=== PATIENT | female | born 1940 | race Caucasian/White ===

== ENCOUNTER 2018-03-12 07:57 | Day surgery (SDC) | payer MEDICARE ==
[~2018-03-12 07:57] MED LIST: CO Q-10100 MG PO; CURAMED PO; ENALAPRIL10 MG PO; FISH OIL1000 M2 PO; HYDROXYCHLOR200 M1 PO; LUTEIN PO; METOPROLOL SUC100 MG PO; NORVASC5 M1 PO; SG ASA LOW81 M1 PO; [UNRECOGNIZED DRUG - OTHER] PO
[2018-03-12 10:23] VITALS: BP 121/68
== END 2018-03-12 10:48 | disposition home or self-care (01) ==
LOC: ENDO 07:57
PROVIDERS: ATTEND Surgery
PROC: 0DJD8ZZ Inspection of Lower Intestinal Tract, Via Natural or Artificial Opening Endoscopic (ICD-10-PCS; principal; 2018-03-12)
DX: Z12.11 Encounter for screening for malignant neoplasm of colon (principal); I48.91 Unspecified atrial fibrillation; I10 Essential (primary) hypertension; M19.90 Unspecified osteoarthritis, unspecified site; Z85.820 Personal history of malignant melanoma of skin

== ENCOUNTER 2018-08-22 02:26 | Emergency (ER) | payer MEDICARE ==
[~2018-08-22] VITALS: Ht 157.5 cm; Wt 100.0 kg
[2018-08-22] MEDS ORDERED: ACYCLOVIR400 MG PO (02:45)
[2018-08-22] MEDS ORDERED: ENALAPRIL10 MG PO (02:45)
[2018-08-22] MEDS ORDERED: HYDROXYCHLOR200 M1 PO (02:45)
[2018-08-22 03:34] VITALS: BP 157/56
== END 2018-08-22 03:34 | disposition home or self-care (01) ==
LOC: ED 02:26
DX: I10 Essential (primary) hypertension (principal); H81.10 Benign paroxysmal vertigo, unspecified ear

== ENCOUNTER 2019-04-02 18:05 | Emergency (ER) | payer MEDICARE ==
[~2019-04-02] VITALS: Ht 157.5 cm; Wt 80.0 kg
[~2019-04-02 18:05] MED LIST changes: +ACYCLOVIR400 MG PO
[2019-04-02 19:02] LABS: HEMATOCRIT 41.2 % (37.0-47.0); HEMOGLOBIN 13.3 g/dl (12.0-16.0); IMMATURE GRANULOCYTES 0.3 % (0.0-5.0); MEAN CELL VOLUME 88.8 fL CALC (80.0-100.0); MEAN CORPUSCULAR HGB 28.7 pG CALC (26.0-32.0); MEAN CORPUSCULAR HGB CONC 32.3 g/L CALC (32.0-36.0); NEUT# 3.13 thou/uL (2.00-7.15); RED BLOOD COUNT 4.64 mill/uL (4.20-5.60); RED CELL DISTRI WIDTH 13.6 % (11.5-15.5)
[2019-04-02 19:21] LABS: ALBUMIN 3.6 g/dL (3.2-5.0); ALKALINE PHOSPHATASE 71 u/l (38-126); ANION GAP 11 (6-22 (CALC)); BILIRUBIN, TOTAL 0.2 mg/dL (0.0-1.4); BUN 16 mg/dL (8-23); BUN/CREATININE RATIO 20 (12-20 (CALC)); CARBON DIOXIDE 29 mmol/l (22-30); CHLORIDE 105 mmol/l (95-108); CREATININE 0.8 mg/dL (0.5-1.0); GFR > 60 ML/MIN (>=60 (CALC)); GFR FOR AFR.AMER. > 60 ML/MIN (>=60 (CALC)); POTASSIUM 4.9 mmol/l (3.5-5.1); SGOT/AST 23 u/l (9-36); SODIUM 139 mmol/l (137-146); TOTAL PROTEIN 6.7 g/dL (6.3-8.2)
[2019-04-02 21:31] VITALS: BP 130/60
== END 2019-04-02 21:30 | disposition home or self-care (01) ==
LOC: ED 18:05
PROVIDERS: Family Medicine
DX: R04.2 Hemoptysis (principal); R91.8 Other nonspecific abnormal finding of lung field; I10 Essential (primary) hypertension
CPT/HCPCS: Q9967

== ENCOUNTER 2019-10-02 | Emergency (ER) | payer MEDICARE, MEDICAID ==
[2019-10-02] MEDS ORDERED: LOSARTAN POTASS50 MG PO (05:22)
[2019-10-02] MEDS ORDERED: CLONIDINE0.1 MG PO (05:22)
[2019-10-02 05:45] LABS: URINE BILIRUBIN - DIPSTICK NEGATIVE (NEGATIVE); URINE BLOOD DIPSTICK NEGATIVE (NEGATIVE); URINE COLOR YELLOW; URINE GLUCOSE - DIPSTICK NEGATIVE (NEGATIVE); URINE KETONE NEGATIVE (NEGATIVE); URINE LEUK ESTERASE NEGATIVE (NEGATIVE); URINE NITRITE - DIPSTICK NEGATIVE (Negative); URINE PROTEIN - DIPSTICK NEGATIVE (NEG-TRACE); URINE UROBILINOGEN - DIPSTICK 0.2 E.U./dL (0.2)
[2019-10-02 05:46] LABS: HEMATOCRIT 42.3 % (37.0-47.0); HEMOGLOBIN 13.8 g/dl (12.0-16.0); IMMATURE GRANULOCYTES 0.2 % (0.0-5.0); MEAN CELL VOLUME 86.7 fL CALC (80.0-100.0); MEAN CORPUSCULAR HGB 28.3 pG CALC (26.0-32.0); MEAN CORPUSCULAR HGB CONC 32.6 g/L CALC (32.0-36.0); NEUT# 3.24 thou/uL (2.00-7.15); RED BLOOD COUNT 4.88 mill/uL (4.20-5.60)
[2019-10-02 06:06] LABS: ALBUMIN 3.5 g/dL (3.2-5.0); ALKALINE PHOSPHATASE 66 u/l (38-126); ANION GAP 10 (6-22 (CALC)); BUN 21 mg/dL (8-23); BUN/CREATININE RATIO 25 (12-20 (CALC)); CARBON DIOXIDE 26 mmol/l (22-30); CHLORIDE 105 mmol/l (95-108); CREATININE 0.8 mg/dL (0.5-1.0); GFR > 60 ML/MIN (>=60 (CALC)); GFR FOR AFR.AMER. > 60 ML/MIN (>=60 (CALC)); POTASSIUM 4.3 mmol/l (3.5-5.1); SGOT/AST 23 u/l (9-36); SODIUM 138 mmol/l (137-146); TOTAL PROTEIN 6.4 g/dL (6.3-8.2)
[2019-10-02 06:08] LABS: BILIRUBIN, TOTAL 0.5 mg/dL (0.0-1.4)
[2019-10-02] MEDS ORDERED: TOPROL XL50 MG PO (06:50)
[2019-10-02] MEDS ORDERED: HYDROXYZINE HYD25 MG PO (06:50)
== END 2019-10-02 07:53 | disposition home or self-care (01) ==
PROVIDERS: Family Medicine
DX: I10 Essential (primary) hypertension (principal); F41.9 Anxiety disorder, unspecified
CPT/HCPCS: J2060

== ENCOUNTER 2021-10-09 13:43 | Emergency (ER) | payer MEDICARE, MEDICAID ==
[~2021-10-09] VITALS: Ht 157.5 cm; Wt 100.0 kg
[~2021-10-09 13:43] MED LIST changes: +CLONIDINE0.1 MG PO; +HYDROXYZINE HYD25 MG PO; +LOSARTAN POTASS50 MG PO; +TOPROL XL50 MG PO
[2021-10-09 15:09] VITALS: BP 134/82
[2021-10-09] MEDS ORDERED: LASIX 20 MG TAB20 MG PO (23:38)
[2021-10-09] MEDS ORDERED: LOSARTAN POTASS50 MG PO (23:39)
[2021-10-10] MEDS ORDERED: METOPROLOL SUCC50 MG PO (09:55)
[2021-10-10] MEDS ORDERED: CRESTOR10 MG PO (09:56)
[2021-10-10] MEDS ORDERED: XARELTO20 MG PO (13:17)
[2021-10-10] MEDS ORDERED: FLECAINIDE50 MG PO (13:18)
== END 2021-10-09 14:35 | disposition left against medical advice (07) ==
LOC: ED 13:43
DX: I48.91 Unspecified atrial fibrillation (principal); I10 Essential (primary) hypertension; Z85.118 Personal history of other malignant neoplasm of bronchus and lung; Z91.19 Patient's noncompliance with other medical treatment and regimen

== ENCOUNTER 2021-10-09 18:14 | Observation (INO) | payer MEDICARE, MEDICAID ==
[~2021-10-09] VITALS: Ht 157.5 cm; Wt 100.0 kg
[2021-10-09] VITALS (10 sets, daily range): BP systolic 134–198; BP diastolic 74–168
[2021-10-09 19:13] LABS: IMMATURE GRANULOCYTES 0.1 % (0.0-5.0); MEAN CELL VOLUME 91.7 fL CALC (80.0-100.0); MEAN CORPUSCULAR HGB 29.9 pG CALC (26.0-32.0); MEAN CORPUSCULAR HGB CONC 32.6 g/dL CAL (32.0-36.0); NEUT# 4.64 thou/uL (2.00-7.15); RED BLOOD COUNT 4.69 mill/uL (4.20-5.60); RED CELL DISTRI WIDTH 13.3 % (11.5-15.5)
[2021-10-09 19:30] LABS: ALBUMIN 3.8 g/dL (3.2-5.0); ALKALINE PHOSPHATASE 74 u/l (38-126); ANION GAP 13 (6-22 (CALC)); BILIRUBIN, TOTAL 0.5 mg/dL (0.0-1.4); BUN 17 mg/dL (8-23); BUN/CREATININE RATIO 22 (12-20 (CALC)); CARBON DIOXIDE 26 mmol/l (22-30); CHLORIDE 106 mmol/l (95-108); CREATININE 0.8 mg/dL (0.5-1.0); GFR > 60 ML/MIN (>=60 (CALC)); GFR FOR AFR.AMER. > 60 ML/MIN (>=60 (CALC)); LIPASE 92 u/l (23-300); POTASSIUM 4.2 mmol/l (3.5-5.1); SGOT/AST 28 u/l (9-36); SODIUM 140 mmol/l (137-146); TOTAL PROTEIN 6.7 g/dL (6.3-8.2)
[2021-10-09 19:35] LABS: ACT PARTIAL THROMBO TIME 27.3 SECONDS (20.0-32.5); INTERNATIONAL NORMALIZED RATIO 1.1 RATIO (0.7-1.3); PROTHROMBIN TIME 11.2 SECONDS (9.0-12.5)
[2021-10-09] MEDS ORDERED: LASIX 20 MG TAB20 MG PO (23:38)
[2021-10-09] MEDS ORDERED: LOSARTAN POTASS50 MG PO (23:39)
[2021-10-10 00:09] VITALS: BP 144/82
[2021-10-10 04:35] VITALS: BP 137/58
[2021-10-10 06:53] LABS: HEMATOCRIT 40.1 % (37.0-47.0); HEMOGLOBIN 12.7 g/dl (12.0-16.0); MEAN CELL VOLUME 92.8 fL CALC (80.0-100.0); MEAN CORPUSCULAR HGB 29.4 pG CALC (26.0-32.0); MEAN CORPUSCULAR HGB CONC 31.7 g/dL CAL (32.0-36.0); RED BLOOD COUNT 4.32 mill/uL (4.20-5.60); RED CELL DISTRI WIDTH 13.4 % (11.5-15.5)
[2021-10-10 07:05] LABS: ANION GAP 9 (6-22 (CALC)); BUN 15 mg/dL (8-23); BUN/CREATININE RATIO 23 (12-20 (CALC)); CALCULATED LDLCHOLESTEROL 37 mg/dL (62-129 (CALC)); CARBON DIOXIDE 23 mmol/l (22-30); CHLORIDE 111 mmol/l (95-108); CHOLESTEROL HDL RATIO 2.7 (<4.4 (CALC)); CREATININE 0.7 mg/dL (0.5-1.0); GFR > 60 ML/MIN (>=60 (CALC)); GFR FOR AFR.AMER. > 60 ML/MIN (>=60 (CALC)); HDL CHOLESTEROL 34 mg/dL (>=40); POTASSIUM 3.7 mmol/l (3.5-5.1); SODIUM 140 mmol/l (137-146); TOTAL CHOLESTEROL 92 mg/dl (0-199); TOTAL TRIGLYCERIDES 101 mg/dl (30-149); VLDL CHOLESTROL 20 mg/dl (0-48 (CALC))
[2021-10-10 07:20] VITALS: BP 152/96
[2021-10-10] MEDS ORDERED: METOPROLOL SUCC50 MG PO (09:55)
[2021-10-10] MEDS ORDERED: CRESTOR10 MG PO (09:56)
[2021-10-10 10:26] VITALS: BP 156/66
[2021-10-10] MEDS ORDERED: XARELTO20 MG PO (13:17)
[2021-10-10] MEDS ORDERED: FLECAINIDE50 MG PO (13:18)
== END 2021-10-10 14:25 | disposition home or self-care (01) ==
LOC: ED 18:14 → ED-I 19:40 → ED 20:08 → MS2 20:09
PROVIDERS: Nurse Practitioner; ADMIT Internal Medicine; ATTEND Internal Medicine
DX: I48.91 Unspecified atrial fibrillation (principal); R07.9 Chest pain, unspecified; I10 Essential (primary) hypertension; M35.00 Sjogren syndrome, unspecified; Z85.118 Personal history of other malignant neoplasm of bronchus and lung; Z90.2 Acquired absence of lung [part of]; Z20.822 Contact with and (suspected) exposure to COVID-19; R00.0 Tachycardia, unspecified; R53.83 Other fatigue; Z91.19 Patient's noncompliance with other medical treatment and regimen
CPT/HCPCS: G0378; J1650

== ENCOUNTER 2023-04-20 10:51 | Emergency (ER) | payer MEDICARE, MEDICAID ==
[~2023-04-20] VITALS: Ht 157.5 cm; Wt 92.9 kg
[~2023-04-20 10:51] MED LIST changes: +CRESTOR10 MG PO; +FLECAINIDE50 MG PO; +LASIX 20 MG TAB20 MG PO; +METOPROLOL SUCC50 MG PO; +XARELTO20 MG PO
[2023-04-20 11:07] VITALS: BP 173/82
[2023-04-20 11:31] VITALS: BP 197/76
[2023-04-20 11:33] VITALS: BP 184/78
[2023-04-20 11:50] LABS: BASO% 0.3 % (0-3); EOS% 3.4 % (0-8); HEMATOCRIT 42.8 % (37.0-47.0); HEMOGLOBIN 13.7 g/dl (12.0-16.0); IMMATURE GRANULOCYTES 0.1 % (0.0-5.0); LYMPH% 16.6 % (15-41); MEAN CELL VOLUME 91.5 fL CALC (80.0-100.0); MEAN CORPUSCULAR HGB 29.3 pG CALC (26.0-32.0); MONO% 11.7 % (2-13); NEUT# 6.23 thou/uL (2.00-7.15); NEUT% 67.9 % (42-76); RED BLOOD COUNT 4.68 mill/uL (4.20-5.60)
[2023-04-20 11:56] LABS: ALBUMIN 3.9 g/dL (3.2-5.0); ALKALINE PHOSPHATASE 75 u/l (38-126); ANION GAP 11 (6-22 (CALC)); BUN 18 mg/dL (8-23); BUN/CREATININE RATIO 24 (12-20 (CALC)); CARBON DIOXIDE 26 mmol/l (22-30); CHLORIDE 105 mmol/l (95-108); CREATININE 0.8 mg/dL (0.5-1.0); GFR FOR AFR.AMER. > 60 ML/MIN (>=60 (CALC)); GFR OTHER RACES > 60 ML/MIN (>=60 (CALC)); POTASSIUM 4.1 mmol/l (3.5-5.1); SGOT/AST 32 u/l (9-36); SODIUM 138 mmol/l (137-146); TOTAL PROTEIN 7.2 g/dL (6.3-8.2)
[2023-04-20 11:56] LABS: URINE BILIRUBIN - DIPSTICK Negative (NEGATIVE); URINE BLOOD DIPSTICK Moderate (NEGATIVE); URINE GLUCOSE - DIPSTICK Negative (NEGATIVE); URINE KETONE Trace mg/dL (NEGATIVE); URINE LEUK ESTERASE Trace (NEGATIVE); URINE NITRITE - DIPSTICK Negative (Negative); URINE PH 6.5 (4.5-8.0); URINE PROTEIN - DIPSTICK >=300 mg/dL (NEG-TRACE); URINE UROBILINOGEN - DIPSTICK 0.2 E.U./dL (0.2)
[2023-04-20 11:57] LABS: URINE COLOR Bloody
[2023-04-20 11:58] LABS: URINE EPITHELIAL CELLS FEW EPI/hpf (0-FEW); URINE RBC >100 RBC/hpf (0-5); URINE WBC 0-2 WBC/hpf (0-5)
[2023-04-20 11:59] LABS: BILIRUBIN, TOTAL 0.8 mg/dL (0.02-1.3)
[2023-04-20] MEDS ORDERED: OMNI-PAC300 MG PO (12:19)
[2023-04-20 12:35] VITALS: BP 160/76
== END 2023-04-20 12:45 | disposition home or self-care (01) ==
LOC: ED 10:51
PROVIDERS: Family Medicine
DX: R31.9 Hematuria, unspecified (principal); I10 Essential (primary) hypertension; I48.91 Unspecified atrial fibrillation; Z79.02 Long term (current) use of antithrombotics/antiplatelets; Z79.01 Long term (current) use of anticoagulants

== ENCOUNTER 2023-04-21 09:11 | Emergency (ER) | payer MEDICARE, MEDICAID ==
[~2023-04-21] VITALS: Ht 157.5 cm; Wt 93.4 kg
[~2023-04-21 09:11] MED LIST changes: +OMNI-PAC300 MG PO
[2023-04-21 09:21] VITALS: BP 221/95
[2023-04-21 09:34] LABS: HEMATOCRIT 43.6 % (37.0-47.0); HEMOGLOBIN 14.1 g/dl (12.0-16.0)
[2023-04-21 10:19] VITALS: BP 163/79
== END 2023-04-21 10:25 | disposition home or self-care (01) ==
LOC: ED 09:11
PROVIDERS: Family Medicine
DX: R31.9 Hematuria, unspecified (principal); I10 Essential (primary) hypertension; I48.91 Unspecified atrial fibrillation; Z79.02 Long term (current) use of antithrombotics/antiplatelets; Z79.01 Long term (current) use of anticoagulants